=== PATIENT | female | born 1970 | race Two or more races ===

== ENCOUNTER 2023-06-13 09:29 | Inpatient (IN) | payer OTHER ==
[~2023-06-13] VITALS: Ht 170.2 cm; Wt 64.4 kg
[2023-06-13] MEDS ORDERED: SINGULAIR10 MG PO (10:34)
[2023-06-13] MEDS ORDERED: PROMETRIUM200 MG PO (10:35)
[2023-06-13] MEDS ORDERED: AMLODIPINE-BEN1 EAC3 PO (10:35)
[2023-06-18] MEDS ORDERED: CLOTRIMAZOLE-BE15 G1 (13:56)
[2023-06-21] MEDS ORDERED: IBU800 MG PO (11:26)
[2023-06-21] MEDS ORDERED: SURFAK240 M1 PO (11:26)
== END 2023-06-21 12:50 | disposition home or self-care (01) | DRG 743 ==
LOC: O/R 06-18 06:42 → OB/GYN 06-18 10:00
PROVIDERS: ADMIT Obstetrics & Gynecology; ATTEND Obstetrics & Gynecology
PROC: 0UT74ZZ Resection of Bilateral Fallopian Tubes, Percutaneous Endoscopic Approach (ICD-10-PCS; 2023-06-18)
PROC: 0UT94ZZ Resection of Uterus, Percutaneous Endoscopic Approach (ICD-10-PCS; principal; 2023-06-18 10:30)
DX: D25.2 Subserosal leiomyoma of uterus (principal); N72 Inflammatory disease of cervix uteri; D27.0 Benign neoplasm of right ovary; N80.03 Adenomyosis of the uterus; Z20.822 Contact with and (suspected) exposure to COVID-19

== ENCOUNTER 2023-08-24 22:03 | Emergency (ER) | payer OTHER ==
[~2023-08-24] VITALS: Ht 162.6 cm; Wt 68.0 kg
[~2023-08-24 22:03] MED LIST: AMLODIPINE-BEN1 EAC3 PO; CLOTRIMAZOLE-BE15 G1; IBU800 MG PO; PROMETRIUM200 MG PO; SINGULAIR10 MG PO; SURFAK240 M1 PO
== END 2023-08-25 05:04 | disposition home or self-care (01) ==
LOC: ER 22:03
DX: R07.89 Other chest pain (principal); Z88.2 Allergy status to sulfonamides

== ENCOUNTER 2024-07-20 14:57 | Emergency (ER) | payer OTHER ==
[~2024-07-20] VITALS: Ht 170.2 cm; Wt 66.7 kg
[2024-07-20] MEDS ORDERED: LOSARTAN-HCTZ1 EACH PO (15:31)
[2024-07-20] MEDS ORDERED: PROGESTERONE100 M1 PO (15:31)
[2024-07-20] MEDS ORDERED: CLOTRIMAZOLE45 G1 TP (15:32)
[2024-07-20] MEDS ORDERED: OMEPRAZOLE40 MG PO (15:32)
[2024-07-20] MEDS ORDERED: ABANEU-SL TABL1 EACH SL (15:33)
[2024-07-20] MEDS ORDERED: KETOROLAC TROMETHAMINE 30 MG VIAL IV ONE (17:00)
[2024-07-20] MEDS ORDERED: GABAPENTIN 100 MG CAPSULE PO ONE (17:00)
[2024-07-20 17:27] LABS: HEMATOCRIT 38.6 % (36.0-45.00); HEMOGLOBIN 12.6 g/dL (12.0-15.00); MEAN CORPUSCULAR HEMOGLOBIN 27.8 pg (27.00-32.0); MEAN CORPUSCULAR HGB CONC 32.8 g/dl (32.0-36.0); PLATELET COUNT 245 K/uL (150-450); RED BLOOD COUNT 4.54 M/uL (4.00-6.00)
[2024-07-20] MEDS ORDERED: GABAPENTIN 300 MG CAPSULE PO ONE (17:30)
[2024-07-20 17:50] LABS: ALBUMIN 3.8 gm/dL (3.4-5.0); BILIRUBIN TOTAL 0.25 mg/dL (0.3-1.2); CALCIUM 8.7 mg/dL (8.5-10.1); CREATININE SERUM 0.72 mg/dL (0.55-1.02); GFR 84.73; GLOBULINA 4.2 G/DL (2.4-3.5); POTASSIUM 3.44 mEq/L (3.5-5.1)
[2024-07-20] MEDS ORDERED: NEURONTIN300 MG PO (18:47)
[2024-07-20] MEDS ORDERED: ZOVIRAX800 MG PO (18:47)
== END 2024-07-20 20:25 ==
LOC: ER 14:59
PROVIDERS: Nurse Practitioner Family
DX: B02.9 Zoster without complications (principal); R21 Rash and other nonspecific skin eruption; Z88.0 Allergy status to penicillin